=== PATIENT | female | born 1950 | race Caucasian/White ===

== ENCOUNTER 2016-05-02 08:39 | Inpatient (IN) | payer OTHER ==
[~2016-05-02] VITALS: Ht 157.5 cm; Wt 90.2 kg
[~2016-05-02 08:39] MED LIST: CARDIZEM120 MG PO; DAILY VITE1 EAC1 PO; DOMP10T PO; EPIPEN ADU0.3 MG/0.3 IM; EVZIO0.4 MG/0.4 IM; FLEXERIL10 MG PO; FLONASE16 G1 BOTH NARES; GLUCOPHAGE500 MG PO; KEFLEX500 MG PO; LEVO-T112 MCG PO; LIPITOR20 MG PO; LISINOPRIL-HCT1 EAC3 PO; LUNESTA2 MG PO; METHYLPREDNISOLO4 MG PO; OXYCONTIN15 MG PO; PROMETHAZINE HC25 M1 PO; PROTONIX40 MG PO; ROPINIROLE HCL2 MG PO; ROXICODONE15 MG PO; SUCRALFATE1 GM PO; SYMBICORT60 INHALAT IH; TIZANIDINE HCL4 MG PO; [UNRECOGNIZED DRUG - OTHER] TP
[2016-05-02 09:07] LABS: ADD MIUA? NO; BILIRUBIN NEGATIVE; BLOOD NEGATIVE; GLUCOSE (STRIP) 100; KETONES NEGATIVE; LEUKOCYTES NEGATIVE; NITRITE NEGATIVE; PH, URINE 8.5 (5-8); PROTEIN (STRIP) 30; SPECIFIC GRAVITY 1.015 (1.000-1.030); UCUL ADDED? NO; UROBILINOGEN 0.2 MG/DL (0.2-1.0)
[2016-05-02 09:09] LABS: COLOR LT YELLOW ((YELLOW))
[2016-05-02 11:27] LABS: HEMATOCRIT 38.9 % (36.0-46.0); MCH 26.7 PG (29.0-34.0); MCV 76.3 FL (83-99); MEAN PLAT.VOLUME 9.1 uM^3 (9.5-12.4); PLATELET COUNT 295 K/uL (156-360); RBC DIS.WIDTH-CV 13.4 % (11.8-14.6); RBC DIS.WIDTH-SD 35.9 % (39-53); WHITE BLOOD COUNT 17.7 K/uL (4.1-10.2)
[2016-05-02 11:38] LABS: CHLORIDE 102 mEq/L (99-109); POTASSIUM 3.2 mEq/L (3.7-5.4); SODIUM 139 mEq/L (136-147)
[2016-05-02 11:40] LABS: GLUCOSE 171 mg/dL (70-99)
[2016-05-02 11:41] LABS: ANION GAP 12 MEQ/L (2-14)
[2016-05-02 11:42] LABS: TOTAL BILIRUBIN 0.6 mg/dL (0.0-1.0)
[2016-05-02 11:43] LABS: ALKALINE PHOSPHATASE 104 IU/L (3-129)
[2016-05-02 11:44] LABS: GFR ESTIMATE (CALCULATED) > 59 mL/min/
[2016-05-02 11:45] LABS: UREA NITROGEN (BUN) 16 mg/dL (9-23)
[2016-05-02] MEDS ORDERED: FEXOFENADINE H180 MG PO (15:00)
[2016-05-02] MEDS ORDERED: OXYCONTIN30 MG PO (15:09)
[2016-05-02] MEDS ORDERED: ROXICODONE30 MG PO (15:09)
[2016-05-02] MEDS ORDERED: LUNESTA3 MG PO (15:10)
[2016-05-02] MEDS ORDERED: ZOLOFT100 MG PO (15:12)
[2016-05-02 18:31] VITALS: BP 180/80
[2016-05-02 19:19] VITALS: BP 150/76
[2016-05-02 23:27] VITALS: BP 180/84
[2016-05-03] VITALS (7 sets, daily range): BP systolic 135–190; BP diastolic 72–98
[2016-05-03 08:58] LABS: EOSINOPHIL (%) 0.1 % (0-5); HEMATOCRIT 36.5 % (36.0-46.0); IMMATURE GRANULOCYTE (%) 0.4 % (0.0-0.7); IMMATURE GRANULOCYTE COUNT 0.1 K/uL; LYMPHOCYTE COUNT 1.2 K/uL (1.0-2.8); MCH 26.7 PG (29.0-34.0); MCHC 33.4 G/DL (30.0-36.0); MCV 79.9 FL (83-99); MEAN PLAT.VOLUME 9.7 uM^3 (9.5-12.4); MONOCYTE (%) 5.7 % (3-12); MONOCYTE COUNT 1.1 K/uL (0-0.8); NEUTROPHIL (%) 87.4 % (45-76); NEUTROPHIL COUNT 16.2 K/uL (1.8-6.4); PLATELET COUNT 237 K/uL (156-360); RBC DIS.WIDTH-CV 14.2 % (11.8-14.6); RBC DIS.WIDTH-SD 40.6 % (39-53); RED BLOOD COUNT 4.57 M/uL (3.80-5.20); WHITE BLOOD COUNT 18.5 K/uL (4.1-10.2)
[2016-05-03 09:03] LABS: POINT-OF-CARE METER ID UU14149397
[2016-05-03 09:17] LABS: ANION GAP 8 MEQ/L (2-14); CHLORIDE 107 MEQ/L (99-109); GFR ESTIMATE (CALCULATED) > 59 mL/min/; GLUCOSE 123 mg/dL (70-99); POTASSIUM 3.8 MEQ/L (3.7-5.4); SAMPLE HEMOLYSIS CHECK 0; SAMPLE ICTERIC CHECK 0; SAMPLE LIPEMIA CHECK 0; SODIUM 140 MEQ/L (136-147); UREA NITROGEN (BUN) 20 mg/dL (9-23)
[2016-05-03 21:55] LABS: POINT-OF-CARE METER ID UU14149397
[2016-05-04 00:57] VITALS: BP 145/69
[2016-05-04 04:50] VITALS: BP 159/72
[2016-05-04 06:54] LABS: HEMATOCRIT 32.8 % (36.0-46.0); MCH 26.7 PG (29.0-34.0); MCHC 32.6 G/DL (30.0-36.0); MCV 81.8 FL (83-99); RBC DIS.WIDTH-CV 14.3 % (11.8-14.6); RED BLOOD COUNT 4.01 M/uL (3.80-5.20); WHITE BLOOD COUNT 14.6 K/uL (4.1-10.2)
[2016-05-04 07:16] LABS: ANION GAP 9 MEQ/L (2-14); CHLORIDE 102 MEQ/L (99-109); GFR ESTIMATE (CALCULATED) > 59 mL/min/; GLUCOSE 146 mg/dL (70-99); SAMPLE HEMOLYSIS CHECK 0; SAMPLE ICTERIC CHECK 0; SAMPLE LIPEMIA CHECK 0; SODIUM 138 MEQ/L (136-147); UREA NITROGEN (BUN) 18 mg/dL (9-23)
[2016-05-04 07:45] VITALS: BP 165/76
[2016-05-04 09:36] LABS: MAGNESIUM 1.8 mg/dl (1.3-2.7)
[2016-05-04 10:52] LABS: MEAN PLAT.VOLUME 9.3 uM^3 (9.5-12.4)
[2016-05-04 10:53] LABS: PLATELET COUNT 165 K/uL (156-360)
[2016-05-04 11:20] VITALS: BP 138/67
[2016-05-04 11:31] LABS: POINT-OF-CARE METER ID UU14149397
[2016-05-04 15:55] VITALS: BP 136/66
[2016-05-04 19:50] VITALS: BP 129/59
[2016-05-05 02:58] LABS: INTERNAL CONTROL VALID? YES
[2016-05-05 03:30] VITALS: BP 118/58
[2016-05-05 03:37] LABS: C DIFF TOXIN NEGATIVE (NEGATIVE)
[2016-05-05 03:39] LABS: PROBE CHECK PASS; SPECIMEN PROCESSING CONTROL PASS
[2016-05-05 06:57] LABS: HEMATOCRIT 29.2 % (36.0-46.0); MCH 26.5 PG (29.0-34.0); MCHC 32.2 G/DL (30.0-36.0); MCV 82.3 FL (83-99); MEAN PLAT.VOLUME 9.2 uM^3 (9.5-12.4); PLATELET COUNT 178 K/uL (156-360); RBC DIS.WIDTH-SD 42.7 % (39-53); RED BLOOD COUNT 3.55 M/uL (3.80-5.20)
[2016-05-05 06:58] LABS: WHITE BLOOD COUNT 9.5 K/uL (4.1-10.2)
[2016-05-05 07:21] LABS: ANION GAP 7 MEQ/L (2-14); CHLORIDE 101 MEQ/L (99-109); GFR ESTIMATE (CALCULATED) > 59 mL/min/; POTASSIUM 3.3 MEQ/L (3.7-5.4); SAMPLE HEMOLYSIS CHECK 0; SAMPLE ICTERIC CHECK 0; SAMPLE LIPEMIA CHECK 0; SODIUM 136 MEQ/L (136-147); UREA NITROGEN (BUN) 15 mg/dL (9-23)
[2016-05-05 07:22] LABS: GLUCOSE 98 mg/dL (70-99)
[2016-05-05 07:35] VITALS: BP 127/59
[2016-05-05 08:27] LABS: MAGNESIUM 1.9 mg/dl (1.3-2.7)
[2016-05-05 11:41] VITALS: BP 129/62
[2016-05-05 16:14] VITALS: BP 120/56
[2016-05-05 19:50] VITALS: BP 132/59
[2016-05-05 21:15] LABS: POINT-OF-CARE METER ID UU14149397
[2016-05-06] VITALS (7 sets, daily range): BP systolic 107–138; BP diastolic 53–71
[2016-05-06 06:15] LABS: MCH 26.8 PG (29.0-34.0); MCHC 32.7 G/DL (30.0-36.0); MCV 82.2 FL (83-99); MEAN PLAT.VOLUME 9.9 uM^3 (9.5-12.4); PLATELET COUNT 209 K/uL (156-360); RBC DIS.WIDTH-SD 42.4 % (39-53); RED BLOOD COUNT 3.65 M/uL (3.80-5.20)
[2016-05-06 06:39] LABS: ANION GAP 7 MEQ/L (2-14); CHLORIDE 105 MEQ/L (99-109); GFR ESTIMATE (CALCULATED) > 59 mL/min/; GLUCOSE 82 mg/dL (70-99); POTASSIUM 3.9 MEQ/L (3.7-5.4); SAMPLE HEMOLYSIS CHECK 0; SAMPLE ICTERIC CHECK 0; SAMPLE LIPEMIA CHECK 0; SODIUM 140 MEQ/L (136-147); UREA NITROGEN (BUN) 13 mg/dL (9-23)
[2016-05-06 07:00] LABS: POINT-OF-CARE METER ID UU14149397
[2016-05-06 11:41] LABS: POINT-OF-CARE METER ID UU14149397
[2016-05-06 17:08] LABS: POINT-OF-CARE METER ID UU14149397
[2016-05-06 21:55] LABS: POINT-OF-CARE METER ID UU14149397
[2016-05-07 03:42] VITALS: BP 119/57
[2016-05-07 05:40] LABS: HEMATOCRIT 29.7 % (36.0-46.0); MCHC 32.7 G/DL (30.0-36.0); MCV 82.7 FL (83-99); MEAN PLAT.VOLUME 9.4 uM^3 (9.5-12.4); PLATELET COUNT 201 K/uL (156-360); RBC DIS.WIDTH-SD 42.6 % (39-53); RED BLOOD COUNT 3.59 M/uL (3.80-5.20); WHITE BLOOD COUNT 7.9 K/uL (4.1-10.2)
[2016-05-07 06:04] LABS: ANION GAP 6 MEQ/L (2-14); CHLORIDE 103 MEQ/L (99-109); GFR ESTIMATE (CALCULATED) > 59 mL/min/; GLUCOSE 95 mg/dL (70-99); POTASSIUM 4.6 MEQ/L (3.7-5.4); SAMPLE HEMOLYSIS CHECK 0; SAMPLE ICTERIC CHECK 0; SAMPLE LIPEMIA CHECK 0; SODIUM 139 MEQ/L (136-147); UREA NITROGEN (BUN) 12 mg/dL (9-23)
[2016-05-07 07:47] LABS: POINT-OF-CARE METER ID UU14149397
[2016-05-07 08:25] VITALS: BP 126/86
[2016-05-07 12:13] VITALS: BP 145/66
[2016-05-07 12:21] LABS: POINT-OF-CARE METER ID UU14149397
[2016-05-07] MEDS ORDERED: CIPRO500 MG PO (14:45)
[2016-05-07 16:24] VITALS: BP 143/71
[2016-05-14] MEDS ORDERED: VENTOLIN HFA18 GM IH (13:33)
[2016-05-14] MEDS ORDERED: DOMP10T PO (13:33)
[2016-05-14] MEDS ORDERED: GINGER ROOT550 MG PO (13:35)
[2016-05-14] MEDS ORDERED: CRANBERRY PO (13:37)
== END 2016-05-07 17:47 | disposition home or self-care (01) | DRG 872 ==
LOC: EME 08:39 → EDOF 13:16 → 3EAST 13:16 → EDOF 15:45 → 3EAST 17:33
PROVIDERS: Hospitalist; Internal Medicine; Physician Assistant
DX: A41.9 Sepsis, unspecified organism (principal); K57.92 Diverticulitis of intestine, part unspecified, without perforation or abscess without bleeding; F33.9 Major depressive disorder, recurrent, unspecified; J90 Pleural effusion, not elsewhere classified; N28.1 Cyst of kidney, acquired; I10 Essential (primary) hypertension; E11.9 Type 2 diabetes mellitus without complications; F43.10 Post-traumatic stress disorder, unspecified; E78.5 Hyperlipidemia, unspecified; G47.00 Insomnia, unspecified; G89.29 Other chronic pain; E66.9 Obesity, unspecified; Z93.3 Colostomy status; E87.6 Hypokalemia; Z86.718 Personal history of other venous thrombosis and embolism; Z86.711 Personal history of pulmonary embolism; Z87.440 Personal history of urinary (tract) infections; Z68.36 Body mass index [BMI] 36.0-36.9, adult
CPT/HCPCS: 71010; 74176; 80048; 80053; 81003; 82272; 82948; 83735; 85025; 85027; 87040; 87493; 87506; 93306; 94640; 94640 76; 94799; 99281; 99285; C9113; J1170; J1650; J1815; J1940; J1956; J2405; J2543; J3010; J3480; J7030; J7050

== ENCOUNTER 2016-05-10 15:48 | Inpatient (IN) | payer OTHER ==
[~2016-05-10] VITALS: Ht 157.5 cm; Wt 90.9 kg
[~2016-05-10 15:48] MED LIST changes: +CIPRO500 MG PO; +FEXOFENADINE H180 MG PO; +LUNESTA3 MG PO; +OXYCONTIN30 MG PO; +ROXICODONE30 MG PO; +ZOLOFT100 MG PO
[2016-05-10 19:30] LABS: EOSINOPHIL (%) 2.5 % (0-5); EOSINOPHIL COUNT 0.3 K/uL (0-0.3); HEMATOCRIT 32.9 % (36.0-46.0); IMMATURE GRANULOCYTE (%) 0.4 % (0.0-0.7); IMMATURE GRANULOCYTE COUNT 0.5 K/uL; LYMPHOCYTE COUNT 2.7 K/uL (1.0-2.8); MCH 26.5 PG (29.0-34.0); MCHC 33.1 G/DL (30.0-36.0); MCV 79.9 FL (83-99); MEAN PLAT.VOLUME 9.1 uM^3 (9.5-12.4); MONOCYTE (%) 5.8 % (3-12); MONOCYTE COUNT 0.7 K/uL (0-0.8); NEUTROPHIL (%) 68.7 % (45-76); NEUTROPHIL COUNT 8.3 K/uL (1.8-6.4); PLATELET COUNT 299 K/uL (156-360); RBC DIS.WIDTH-CV 13.7 % (11.8-14.6); RBC DIS.WIDTH-SD 38.8 % (39-53); RED BLOOD COUNT 4.12 M/uL (3.80-5.20)
[2016-05-10 19:41] LABS: CHLORIDE 101 mEq/L (99-109); SODIUM 138 mEq/L (136-147)
[2016-05-10 19:43] LABS: GLUCOSE 88 mg/dL (70-99); POTASSIUM 3.4 mEq/L (3.7-5.4)
[2016-05-10 19:43] LABS: ADD MIUA? NO; BILIRUBIN NEGATIVE; BLOOD NEGATIVE; COLOR YELLOW ((YELLOW)); GLUCOSE (STRIP) NEGATIVE; KETONES NEGATIVE; LEUKOCYTES NEGATIVE; NITRITE NEGATIVE; PH, URINE 8.5 (5-8); PROTEIN (STRIP) TRACE; SPECIFIC GRAVITY 1.016 (1.000-1.030); UCUL ADDED? NO; UROBILINOGEN 0.2 MG/DL (0.2-1.0)
[2016-05-10 19:44] LABS: ANION GAP 13 MEQ/L (2-14)
[2016-05-10 19:45] LABS: TOTAL BILIRUBIN 0.3 mg/dL (0.0-1.0)
[2016-05-10 19:47] LABS: ALKALINE PHOSPHATASE 83 IU/L (3-129); GFR ESTIMATE (CALCULATED) > 59 mL/min/
[2016-05-10 19:48] LABS: UREA NITROGEN (BUN) 15 mg/dL (9-23)
[2016-05-10 21:25] LABS: C DIFF TOXIN NEGATIVE (NEGATIVE)
[2016-05-10 21:27] LABS: PROBE CHECK PASS; SPECIMEN PROCESSING CONTROL PASS
[2016-05-11 03:34] VITALS: BP 133/64
[2016-05-11 08:20] VITALS: BP 136/72
[2016-05-11 15:33] VITALS: BP 143/82
[2016-05-11 23:49] VITALS: BP 95/58
[2016-05-12 08:29] LABS: EOSINOPHIL (%) 2.1 % (0-5); EOSINOPHIL COUNT 0.2 K/uL (0-0.3); HEMATOCRIT 31.5 % (36.0-46.0); IMMATURE GRANULOCYTE (%) 0.4 % (0.0-0.7); LYMPHOCYTE COUNT 1.5 K/uL (1.0-2.8); MCH 26.1 PG (29.0-34.0); MCHC 32.1 G/DL (30.0-36.0); MCV 81.4 FL (83-99); MONOCYTE (%) 6.2 % (3-12); MONOCYTE COUNT 0.5 K/uL (0-0.8); NEUTROPHIL (%) 71.5 % (45-76); NEUTROPHIL COUNT 5.4 K/uL (1.8-6.4); PLATELET COUNT 244 K/uL (156-360); RBC DIS.WIDTH-CV 14.3 % (11.8-14.6); RBC DIS.WIDTH-SD 42.3 % (39-53); RED BLOOD COUNT 3.87 M/uL (3.80-5.20); WHITE BLOOD COUNT 7.6 K/uL (4.1-10.2)
[2016-05-12 08:33] VITALS: BP 134/69
[2016-05-12 08:51] LABS: ANION GAP 11 MEQ/L (2-14); CHLORIDE 105 MEQ/L (99-109); GFR ESTIMATE (CALCULATED) 59 mL/min/; GLUCOSE 110 mg/dL (70-99); POTASSIUM 4.3 MEQ/L (3.7-5.4); SAMPLE HEMOLYSIS CHECK 0; SAMPLE ICTERIC CHECK 0; SAMPLE LIPEMIA CHECK 0; SODIUM 139 MEQ/L (136-147); UREA NITROGEN (BUN) 11 mg/dL (9-23)
[2016-05-12 23:00] VITALS: BP 144/76
[2016-05-13 06:27] LABS: HEMATOCRIT 32.6 % (36.0-46.0); MCHC 31.3 G/DL (30.0-36.0); MCV 83.2 FL (83-99); PLATELET COUNT 283 K/uL (156-360); RBC DIS.WIDTH-CV 14.3 % (11.8-14.6); RBC DIS.WIDTH-SD 43.3 % (39-53); RED BLOOD COUNT 3.92 M/uL (3.80-5.20); WHITE BLOOD COUNT 8.8 K/uL (4.1-10.2)
[2016-05-13 06:52] LABS: ANION GAP 9 MEQ/L (2-14); CHLORIDE 104 MEQ/L (99-109); GFR ESTIMATE (CALCULATED) 53 mL/min/; GLUCOSE 112 mg/dL (70-99); POTASSIUM 4.4 MEQ/L (3.7-5.4); SAMPLE HEMOLYSIS CHECK 0; SAMPLE ICTERIC CHECK 0; SAMPLE LIPEMIA CHECK 0; SODIUM 139 MEQ/L (136-147); UREA NITROGEN (BUN) 14 mg/dL (9-23)
[2016-05-13 09:06] VITALS: BP 140/68
[2016-05-13] MEDS ORDERED: FLORASTOR250 MG PO (09:25)
[2016-05-13] MEDS ORDERED: BENTYL20 MG PO (09:25)
[2016-05-13 12:44] VITALS: BP 140/70
[2016-05-14] MEDS ORDERED: DOMP10T PO (13:33)
[2016-05-14] MEDS ORDERED: VENTOLIN HFA18 GM IH (13:33)
[2016-05-14] MEDS ORDERED: GINGER ROOT550 MG PO (13:35)
[2016-05-14] MEDS ORDERED: CRANBERRY PO (13:37)
== END 2016-05-13 17:54 | disposition home or self-care (01) | DRG 392 ==
LOC: EME 15:48 → EDOF 05-11 01:57 → 5EAST 05-11 01:57
PROVIDERS: Emergency Medicine; Hospitalist
DX: K52.9 Noninfective gastroenteritis and colitis, unspecified (principal); R65.10 Systemic inflammatory response syndrome (SIRS) of non-infectious origin without acute organ dysfunction; K57.32 Diverticulitis of large intestine without perforation or abscess without bleeding; N28.1 Cyst of kidney, acquired; K43.5 Parastomal hernia without obstruction or gangrene; K76.0 Fatty (change of) liver, not elsewhere classified; I10 Essential (primary) hypertension; E78.5 Hyperlipidemia, unspecified; E11.9 Type 2 diabetes mellitus without complications; E03.9 Hypothyroidism, unspecified; G89.29 Other chronic pain; E66.9 Obesity, unspecified; F32.9 Major depressive disorder, single episode, unspecified; Z93.3 Colostomy status; Z87.440 Personal history of urinary (tract) infections
CPT/HCPCS: 74176; 80048; 80053; 81003; 85025; 85027; 87177; 87493; 87506; 94640; 94640 76; 99281; 99285; J0696; J0780; J1170; J1650; J2270; J2543; J7030; J7050; S0028

== ENCOUNTER 2016-09-27 09:46 | Emergency (ER) | payer OTHER ==
[~2016-09-27] VITALS: Ht 160 cm; Wt 94.6 kg
[~2016-09-27 09:46] MED LIST changes: +BENTYL20 MG PO; +CRANBERRY PO; +CYMBALTA30 MG PO; +FLORASTOR250 MG PO; +GINGER ROOT550 MG PO; +PROZAC20 MG PO; +VENTOLIN HFA18 GM IH
[2016-09-27 10:09] LABS: POINT-OF-CARE METER ID UU13113702
[2016-09-27 11:59] LABS: HEMATOCRIT 35.3 % (36.0-46.0); MCH 26.4 PG (29.0-34.0); MCHC 32.6 G/DL (30.0-36.0); MEAN PLAT.VOLUME 9.1 uM^3 (9.5-12.4); PLATELET COUNT 232 K/uL (156-360); RBC DIS.WIDTH-CV 13.7 % (11.8-14.6); RBC DIS.WIDTH-SD 39.8 % (39-53); RED BLOOD COUNT 4.36 M/uL (3.80-5.20); WHITE BLOOD COUNT 7.8 K/uL (4.1-10.2)
[2016-09-27 12:08] LABS: CHLORIDE 106 mEq/L (99-109); POTASSIUM 3.9 mEq/L (3.7-5.4); SODIUM 142 mEq/L (136-147)
[2016-09-27 12:10] LABS: GLUCOSE 131 mg/dL (70-99)
[2016-09-27 12:11] LABS: ANION GAP 8 MEQ/L (2-14)
[2016-09-27 12:12] LABS: TOTAL BILIRUBIN 0.2 mg/dL (0.0-1.0)
[2016-09-27 12:13] LABS: ALKALINE PHOSPHATASE 91 IU/L (3-129)
[2016-09-27 12:14] LABS: GFR ESTIMATE (CALCULATED) 59 mL/min/
[2016-09-27 12:15] LABS: UREA NITROGEN (BUN) 14 mg/dL (9-23)
[2016-09-27 12:20] LABS: TROP-I INTERPRETATION NEGATIVE; TROPONIN-I < 0.01 ng/mL (0.0-0.30)
[2016-09-27] MEDS ORDERED: ZOFRAN ODT4 MG PO (13:18)
[2016-09-27 14:19] VITALS: BP 138/83
== END 2016-09-27 14:20 | disposition home or self-care (01) ==
LOC: EME 09:46
PROVIDERS: Emergency Medicine
DX: R53.1 Weakness (principal); R11.0 Nausea; E86.0 Dehydration; R10.84 Generalized abdominal pain; I10 Essential (primary) hypertension; E03.9 Hypothyroidism, unspecified; E11.9 Type 2 diabetes mellitus without complications; Z79.84 Long term (current) use of oral hypoglycemic drugs; Z93.3 Colostomy status; Z90.710 Acquired absence of both cervix and uterus; Z87.891 Personal history of nicotine dependence
CPT/HCPCS: 80053; 82948; 84484; 85027; 93005; 99281; 99285; J2405; J7030

== ENCOUNTER 2016-10-14 21:51 | Observation (INO) | payer OTHER ==
[~2016-10-14] VITALS: Ht 157.5 cm; Wt 85.4 kg
[~2016-10-14 21:51] MED LIST changes: +ZOFRAN ODT4 MG PO
[2016-10-15 00:48] LABS: HEMATOCRIT 36.2 % (36.0-46.0); MCH 26.8 PG (29.0-34.0); MCHC 33.1 G/DL (30.0-36.0); MEAN PLAT.VOLUME 9.3 uM^3 (9.5-12.4); PLATELET COUNT 232 K/uL (156-360); RBC DIS.WIDTH-CV 13.4 % (11.8-14.6); RBC DIS.WIDTH-SD 39.2 % (39-53); RED BLOOD COUNT 4.47 M/uL (3.80-5.20); WHITE BLOOD COUNT 10.9 K/uL (4.1-10.2)
[2016-10-15 00:59] LABS: CHLORIDE 100 mEq/L (99-109); POTASSIUM 3.5 mEq/L (3.7-5.4); SODIUM 134 mEq/L (136-147)
[2016-10-15 01:01] LABS: GLUCOSE 93 mg/dL (70-99)
[2016-10-15 01:02] LABS: ANION GAP 9 MEQ/L (2-14)
[2016-10-15 01:03] LABS: TOTAL BILIRUBIN 0.6 mg/dL (0.0-1.0)
[2016-10-15 01:04] LABS: ALKALINE PHOSPHATASE 93 IU/L (3-129)
[2016-10-15 01:05] LABS: GFR ESTIMATE (CALCULATED) 25 mL/min/
[2016-10-15 01:06] LABS: UREA NITROGEN (BUN) 28 mg/dL (9-23)
[2016-10-15 04:11] LABS: ADD MIUA? YES; BILIRUBIN NEGATIVE; BLOOD NEGATIVE; COLOR YELLOW ((YELLOW)); GLUCOSE (STRIP) NEGATIVE; KETONES NEGATIVE; LEUKOCYTES TRACE; NITRITE NEGATIVE; PROTEIN (STRIP) NEGATIVE; SPECIFIC GRAVITY 1.006 (1.000-1.030); UROBILINOGEN 0.2 MG/DL (0.2-1.0)
[2016-10-15 04:20] LABS: BACTERIA NONE SEEN /HPF; EPITHELIAL CELLS RARE /HPF; GRANULAR CASTS 0-5 /LPF; MUCUS TRACE /LPF; RED BLOOD CELLS 0-5 /HPF (0-5); UCUL ADDED? NO; WHITE BLOOD CELLS 0-5 /HPF (0-5)
[2016-10-15] MEDS ORDERED: CYMBALTA20 MG PO (08:15)
[2016-10-15] MEDS ORDERED: ZOLOFT100 MG PO (08:16)
[2016-10-15] MEDS ORDERED: PROBIOTIC1 EAC2 PO (08:19)
[2016-10-15] MEDS ORDERED: [UNRECOGNIZED DRUG - OTHER] TP (08:23)
[2016-10-15 12:40] LABS: LIPASE 29 U/L (1.0-51.0)
[2016-10-15 16:31] LABS: POINT-OF-CARE METER ID UU14174225
[2016-10-15 16:41] VITALS: BP 129/68
[2016-10-16 00:37] VITALS: BP 132/73
[2016-10-16 03:44] LABS: ADD MIUA? YES; BILIRUBIN NEGATIVE; BLOOD NEGATIVE; COLOR STRAW ((YELLOW)); GLUCOSE (STRIP) NEGATIVE; KETONES NEGATIVE; LEUKOCYTES TRACE; NITRITE NEGATIVE; PROTEIN (STRIP) NEGATIVE; SPECIFIC GRAVITY 1.004 (1.000-1.030); UROBILINOGEN 0.2 MG/DL (0.2-1.0)
[2016-10-16 03:58] LABS: BACTERIA 1+ /HPF; EPITHELIAL CELLS NONE SEEN /HPF; MUCUS NONE SEEN /LPF; UCUL ADDED? NO
[2016-10-16 06:25] LABS: EOSINOPHIL (%) 3.4 % (0-5); EOSINOPHIL COUNT 0.2 K/uL (0-0.3); HEMATOCRIT 32.9 % (36.0-46.0); IMMATURE GRANULOCYTE (%) 0.3 % (0.0-0.7); INSTRUMENT ABS NEUTROPHIL CT 3.8 K/uL; MCH 27.6 PG (29.0-34.0); MCHC 33.1 G/DL (30.0-36.0); MCV 83.3 FL (83-99); MEAN PLAT.VOLUME 9.2 uM^3 (9.5-12.4); MONOCYTE (%) 6.3 % (3-12); MONOCYTE COUNT 0.4 K/uL (0-0.8); NEUTROPHIL COUNT 3.8 K/uL (1.8-6.4); PLATELET COUNT 221 K/uL (156-360); RBC DIS.WIDTH-CV 13.7 % (11.8-14.6); RBC DIS.WIDTH-SD 41.9 % (39-53); RED BLOOD COUNT 3.95 M/uL (3.80-5.20); WHITE BLOOD COUNT 6.5 K/uL (4.1-10.2)
[2016-10-16 06:44] LABS: ANION GAP 7 MEQ/L (2-14); CHLORIDE 106 MEQ/L (99-109); GFR ESTIMATE (CALCULATED) > 59 mL/min/; GLUCOSE 98 mg/dL (70-99); POTASSIUM 3.9 MEQ/L (3.7-5.4); SAMPLE HEMOLYSIS CHECK 0; SAMPLE ICTERIC CHECK 0; SAMPLE LIPEMIA CHECK 0; SODIUM 138 MEQ/L (136-147); UREA NITROGEN (BUN) 13 mg/dL (9-23)
[2016-10-16 07:57] VITALS: BP 111/57
[2016-10-16 16:16] VITALS: BP 114/58
== END 2016-10-16 16:32 | disposition home or self-care (01) ==
LOC: RME 21:51 → EME 21:51 → 5SOUTH 10-15 06:43 → EDOF 10-15 06:43 → 5SOUTH 10-15 16:12
PROVIDERS: Hospitalist; Internal Medicine
DX: N17.9 Acute kidney failure, unspecified (principal); R10.9 Unspecified abdominal pain; R19.7 Diarrhea, unspecified; E86.0 Dehydration; E11.43 Type 2 diabetes mellitus with diabetic autonomic (poly)neuropathy; K31.84 Gastroparesis; G89.4 Chronic pain syndrome; Z93.3 Colostomy status; E03.9 Hypothyroidism, unspecified; E78.5 Hyperlipidemia, unspecified; I10 Essential (primary) hypertension; F32.9 Major depressive disorder, single episode, unspecified; Z87.891 Personal history of nicotine dependence; G47.00 Insomnia, unspecified; Z68.34 Body mass index [BMI] 34.0-34.9, adult; E66.01 Morbid (severe) obesity due to excess calories
CPT/HCPCS: 74176; 80048; 80053; 81003; 82948; 83605; 83690; 85025; 85027; 87177; 87329; 87493; 94640; 94640 76; 99202; 99281; 99285; G0378; J1644; J1815; J2270; J2405; J3010; J7030; J7040

== ENCOUNTER 2016-12-03 18:01 | Inpatient (IN) | payer OTHER ==
[~2016-12-03] VITALS: Ht 157.5 cm; Wt 88.5 kg
[~2016-12-03 18:01] MED LIST changes: +CYMBALTA20 MG PO; +EFFEXOR XR150 MG PO; -EVZIO0.4 MG/0.4 IM; +NALOXONE H0.4 MG/12 NS; +OXYCONTIN20 MG PO; +PROBIOTIC1 EAC2 PO; +ZESTRIL20 MG PO; +[UNRECOGNIZED DRUG - OTHER] TP
[2016-12-03 18:25] LABS: POINT-OF-CARE METER ID UU13113778
[2016-12-03 20:12] LABS: HEMATOCRIT 41.3 % (36.0-46.0); MCH 26.9 PG (29.0-34.0); MCHC 34.6 G/DL (30.0-36.0); MCV 77.8 FL (83-99); PLATELET COUNT 295 K/uL (156-360); RBC DIS.WIDTH-SD 36.7 % (39-53); RED BLOOD COUNT 5.31 M/uL (3.80-5.20); WHITE BLOOD COUNT 13.6 K/uL (4.1-10.2)
[2016-12-03 20:22] LABS: CHLORIDE 99 mEq/L (99-109); POTASSIUM 3.2 mEq/L (3.7-5.4); SODIUM 134 mEq/L (136-147)
[2016-12-03 20:24] LABS: GLUCOSE 207 mg/dL (70-99)
[2016-12-03 20:25] LABS: ANION GAP 11 MEQ/L (2-14)
[2016-12-03 20:26] LABS: TOTAL BILIRUBIN 0.5 mg/dL (0.0-1.0)
[2016-12-03 20:28] LABS: ALKALINE PHOSPHATASE 117 IU/L (3-129); GFR ESTIMATE (CALCULATED) > 59 mL/min/
[2016-12-03 20:29] LABS: UREA NITROGEN (BUN) 12 mg/dL (9-23)
[2016-12-03 20:32] LABS: LIPASE 22 U/L (1.0-51.0)
[2016-12-03 22:31] LABS: CREATINE KINASE 26 IU/L (1-294)
[2016-12-04] VITALS (22 sets, daily range): BP systolic 100–224; BP diastolic 53–160
[2016-12-04 00:29] LABS: BASE EXCESS -2.8 mEq/L (-3 to +3); BICARBONATE 21.9 mEq/L (22-26); CARBOXY HGB 0.9 % (0-5); COMMENTS - BLOOD GASES C+A+; DEVICE NC; METHEMOGLOBIN 0.7 % (0-1.5); O2 FLOW 2 L/MIN; PCO2 37 mm Hg (35-45); PO2 115 mm Hg (80-100); SITE RR; pH 7.38 (7.35-7.45)
[2016-12-04 01:22] LABS: INTER. NORMALIZED RATIO 1.2; PROTHROMBIN TIME 12.7 SEC (10.2-12.9)
[2016-12-04 01:24] LABS: PTT 25.1 SEC (25-37)
[2016-12-04 07:08] LABS: ADD MIUA? YES; BILIRUBIN NEGATIVE; BLOOD SMALL; COLOR YELLOW ((YELLOW)); GLUCOSE (STRIP) NEGATIVE; KETONES NEGATIVE; LEUKOCYTES MODERATE; NITRITE POSITIVE; PROTEIN (STRIP) 100; SPECIFIC GRAVITY 1.014 (1.000-1.030); UROBILINOGEN 0.2 MG/DL (0.2-1.0)
[2016-12-04 07:19] LABS: ANION GAP 22 MEQ/L (2-14); CHLORIDE 104 MEQ/L (99-109); GFR ESTIMATE (CALCULATED) 59 mL/min/; GLUCOSE 159 mg/dL (70-99); POTASSIUM 3.5 MEQ/L (3.7-5.4); SAMPLE HEMOLYSIS CHECK 0; SAMPLE ICTERIC CHECK 0; SAMPLE LIPEMIA CHECK 0; SODIUM 140 MEQ/L (136-147); UREA NITROGEN (BUN) 16 mg/dL (9-23)
[2016-12-04 07:33] LABS: BACTERIA 1+ /HPF; EPITHELIAL CELLS 1+ /HPF; MUCUS TRACE /LPF; UCUL ADDED? YES; WHITE BLOOD CELLS TNTC /HPF (0-5)
[2016-12-04 08:12] LABS: AMPHETAMINES QUANT VALUE 0 NG/ML; BARBITUATES QUANT VALUE 0 NG/ML; BENZODIAZEPINES QUANT VALUE 0 NG/ML; BENZODIAZEPINES, URINE SCREEN Negative (200 ng/mL); MARIJUANA QUANT VALUE 0 NG/ML; PHENCYCLIDINE QUANT VALUE 0 NG/ML
[2016-12-04 11:11] LABS: ANION GAP 16 MEQ/L (2-14); CHLORIDE 107 MEQ/L (99-109); MAGNESIUM 1.4 mg/dl (1.3-2.7); POTASSIUM 3.4 MEQ/L (3.7-5.4); SAMPLE HEMOLYSIS CHECK 0; SAMPLE ICTERIC CHECK 0; SAMPLE LIPEMIA CHECK 0; SODIUM 143 MEQ/L (136-147); TOTAL BILIRUBIN 0.4 MG/DL (0.0-1.0)
[2016-12-04 11:17] LABS: ALKALINE PHOSPHATASE 92 IU/L (3-129); GFR ESTIMATE (CALCULATED) > 59 mL/min/; GLUCOSE 143 mg/dL (70-99); UREA NITROGEN (BUN) 17 mg/dL (9-23)
[2016-12-04 11:27] LABS: METH RESISTANT S AUREUS PCR NEGATIVE (NEGATIVE); PROBE CHECK PASS; SPECIMEN PROCESSING CONTROL PASS
[2016-12-04 11:33] LABS: BASE EXCESS -0.8 mEq/L (-3 to +3); BICARBONATE 23.2 mEq/L (22-26); CARBOXY HGB 0.5 % (0-5); METHEMOGLOBIN 1.2 % (0-1.5); PCO2 35 mm Hg (35-45); PO2 217 mm Hg (80-100); pH 7.43 (7.35-7.45)
[2016-12-04 11:35] LABS: COMMENTS - BLOOD GASES A+C+; DEVICE 980 PB; FI02 100 %; MECHANICAL RATE 10 resp/min; MODE AC; PEEP 5 CM/H20; SITE LR; TIDAL VOLUME 500 ML; TOTAL RESP RATE 15 resp/min
[2016-12-04 18:46] LABS: POINT-OF-CARE METER ID UU13113731
[2016-12-04 21:25] LABS: POINT-OF-CARE METER ID UU13113731
[2016-12-05] VITALS (27 sets, daily range): BP systolic 53–221; BP diastolic 22–123
[2016-12-05 02:06] LABS: POINT-OF-CARE METER ID UU14162636
[2016-12-05 05:47] LABS: ANION GAP 9 MEQ/L (2-14); CHLORIDE 108 MEQ/L (99-109); GFR ESTIMATE (CALCULATED) > 59 mL/min/; GLUCOSE 113 mg/dL (70-99); POTASSIUM 3.5 MEQ/L (3.7-5.4); SAMPLE HEMOLYSIS CHECK 0; SAMPLE ICTERIC CHECK 0; SAMPLE LIPEMIA CHECK 0; SODIUM 140 MEQ/L (136-147); UREA NITROGEN (BUN) 17 mg/dL (9-23)
[2016-12-05 05:57] LABS: EOSINOPHIL (%) 0.1 % (0-5); HEMATOCRIT 31.7 % (36.0-46.0); IMMATURE GRANULOCYTE (%) 0.6 % (0.0-0.7); IMMATURE GRANULOCYTE COUNT 0.1 K/uL; INSTRUMENT ABS NEUTROPHIL CT 10.8 K/uL; LYMPHOCYTE COUNT 1.2 K/uL (1.0-2.8); MCH 27.9 PG (29.0-34.0); MCHC 34.1 G/DL (30.0-36.0); MEAN PLAT.VOLUME 9.6 uM^3 (9.5-12.4); MONOCYTE (%) 5.3 % (3-12); MONOCYTE COUNT 0.7 K/uL (0-0.8); NEUTROPHIL (%) 84.8 % (45-76); NEUTROPHIL COUNT 10.8 K/uL (1.8-6.4); PLAT.SUFFICIENCY ADEQUATE; RBC DIS.WIDTH-CV 14.2 % (11.8-14.6); RBC DIS.WIDTH-SD 41.4 % (39-53); WHITE BLOOD COUNT 12.8 K/uL (4.1-10.2)
[2016-12-05 05:58] LABS: POINT-OF-CARE METER ID UU14162636
[2016-12-05 05:58] LABS: MCV 81.9 FL (83-99); PLATELET COUNT 194 K/uL (156-360); RED BLOOD COUNT 3.87 M/uL (3.80-5.20)
[2016-12-05 10:05] LABS: POINT-OF-CARE METER ID UU13113731
[2016-12-05 13:34] LABS: POINT-OF-CARE METER ID UU13113731
[2016-12-05] MEDS ORDERED: BENADRYL59 ML TP (15:41)
[2016-12-05] MEDS ORDERED: BENADRYL25 MG PO (15:43)
[2016-12-05 18:22] LABS: POINT-OF-CARE METER ID UU13113731
[2016-12-05 21:20] LABS: POINT-OF-CARE METER ID UU13113731
[2016-12-06] VITALS (24 sets, daily range): BP systolic 79–214; BP diastolic 40–112
[2016-12-06 02:03] LABS: POINT-OF-CARE METER ID UU13113748
[2016-12-06 05:40] LABS: POINT-OF-CARE METER ID UU13113748
[2016-12-06 05:59] LABS: EOSINOPHIL (%) 2.5 % (0-5); EOSINOPHIL COUNT 0.2 K/uL (0-0.3); HEMATOCRIT 28.8 % (36.0-46.0); IMMATURE GRANULOCYTE (%) 0.4 % (0.0-0.7); LYMPHOCYTE COUNT 2.1 K/uL (1.0-2.8); MCH 26.5 PG (29.0-34.0); MCHC 31.6 G/DL (30.0-36.0); MCV 83.7 FL (83-99); MEAN PLAT.VOLUME 9.4 uM^3 (9.5-12.4); MONOCYTE (%) 5.9 % (3-12); MONOCYTE COUNT 0.5 K/uL (0-0.8); NEUTROPHIL (%) 67.3 % (45-76); PLATELET COUNT 172 K/uL (156-360); RBC DIS.WIDTH-CV 14.5 % (11.8-14.6); RBC DIS.WIDTH-SD 44.3 % (39-53); RED BLOOD COUNT 3.44 M/uL (3.80-5.20); WHITE BLOOD COUNT 8.9 K/uL (4.1-10.2)
[2016-12-06 06:41] LABS: ANION GAP 5 MEQ/L (2-14); CHLORIDE 109 MEQ/L (99-109); GFR ESTIMATE (CALCULATED) > 59 mL/min/; GLUCOSE 115 mg/dL (70-99); POTASSIUM 3.4 MEQ/L (3.7-5.4); SAMPLE HEMOLYSIS CHECK 0; SAMPLE ICTERIC CHECK 0; SAMPLE LIPEMIA CHECK 0; SODIUM 139 MEQ/L (136-147); UREA NITROGEN (BUN) 14 mg/dL (9-23)
[2016-12-06 12:06] LABS: POINT-OF-CARE METER ID UU13113748
[2016-12-07] VITALS (27 sets, daily range): BP systolic 116–221; BP diastolic 57–108
[2016-12-07 01:33] LABS: CHLORIDE 108 mEq/L (99-109); EOSINOPHIL (%) 1.1 % (0-5); EOSINOPHIL COUNT 0.2 K/uL (0-0.3); HEMATOCRIT 34.9 % (36.0-46.0); IMMATURE GRANULOCYTE (%) 0.9 % (0.0-0.7); IMMATURE GRANULOCYTE COUNT 0.1 K/uL; INSTRUMENT ABS NEUTROPHIL CT 11.7 K/uL; LYMPHOCYTE COUNT 1.2 K/uL (1.0-2.8); MCH 27.1 PG (29.0-34.0); MCHC 33.8 G/DL (30.0-36.0); MCV 80.2 FL (83-99); MEAN PLAT.VOLUME 9.2 uM^3 (9.5-12.4); MONOCYTE (%) 6.5 % (3-12); MONOCYTE COUNT 0.9 K/uL (0-0.8); NEUTROPHIL (%) 83.2 % (45-76); NEUTROPHIL COUNT 11.7 K/uL (1.8-6.4); POTASSIUM 3.6 mEq/L (3.7-5.4); RBC DIS.WIDTH-CV 13.7 % (11.8-14.6); RBC DIS.WIDTH-SD 40.1 % (39-53); SODIUM 141 mEq/L (136-147); WHITE BLOOD COUNT 14.1 K/uL (4.1-10.2)
[2016-12-07 01:35] LABS: GLUCOSE 120 mg/dL (70-99)
[2016-12-07 01:36] LABS: ANION GAP 14 MEQ/L (2-14)
[2016-12-07 01:38] LABS: PLATELET COUNT 234 K/uL (156-360); RED BLOOD COUNT 4.35 M/uL (3.80-5.20)
[2016-12-07 01:39] LABS: GFR ESTIMATE (CALCULATED) > 59 mL/min/
[2016-12-07 01:40] LABS: UREA NITROGEN (BUN) 10 mg/dL (9-23)
[2016-12-07 07:13] LABS: ANION GAP 13 MEQ/L (2-14); CHLORIDE 104 MEQ/L (99-109); GFR ESTIMATE (CALCULATED) > 59 mL/min/; GLUCOSE 119 mg/dL (70-99); POTASSIUM 4.2 MEQ/L (3.7-5.4); SAMPLE HEMOLYSIS CHECK 1; SAMPLE ICTERIC CHECK 0; SAMPLE LIPEMIA CHECK 0; SODIUM 137 MEQ/L (136-147); UREA NITROGEN (BUN) 9 mg/dL (9-23)
[2016-12-07 08:20] LABS: EOSINOPHIL (%) 0.6 % (0-5); EOSINOPHIL COUNT 0.1 K/uL (0-0.3); IMMATURE GRANULOCYTE (%) 1.4 % (0.0-0.7); IMMATURE GRANULOCYTE COUNT 0.2 K/uL; INSTRUMENT ABS NEUTROPHIL CT 12.4 K/uL; LYMPHOCYTE COUNT 1.3 K/uL (1.0-2.8); MCH 28.1 PG (29.0-34.0); MCHC 34.9 G/DL (30.0-36.0); MCV 80.6 FL (83-99); MEAN PLAT.VOLUME 9.3 uM^3 (9.5-12.4); MONOCYTE (%) 4.4 % (3-12); MONOCYTE COUNT 0.6 K/uL (0-0.8); NEUTROPHIL (%) 84.8 % (45-76); NEUTROPHIL COUNT 12.4 K/uL (1.8-6.4); PLATELET COUNT 227 K/uL (156-360); RBC DIS.WIDTH-CV 13.9 % (11.8-14.6); RBC DIS.WIDTH-SD 40.9 % (39-53); RED BLOOD COUNT 4.34 M/uL (3.80-5.20); WHITE BLOOD COUNT 14.6 K/uL (4.1-10.2)
[2016-12-08] VITALS (23 sets, daily range): BP systolic 89–160; BP diastolic 47–82
[2016-12-08 06:25] LABS: EOSINOPHIL (%) 2.8 % (0-5); EOSINOPHIL COUNT 0.4 K/uL (0-0.3); HEMATOCRIT 35.5 % (36.0-46.0); IMMATURE GRANULOCYTE (%) 0.6 % (0.0-0.7); IMMATURE GRANULOCYTE COUNT 0.1 K/uL; INSTRUMENT ABS NEUTROPHIL CT 10.6 K/uL; LYMPHOCYTE COUNT 2.1 K/uL (1.0-2.8); MCH 27.2 PG (29.0-34.0); MCHC 33.8 G/DL (30.0-36.0); MCV 80.5 FL (83-99); MONOCYTE (%) 5.6 % (3-12); MONOCYTE COUNT 0.8 K/uL (0-0.8); NEUTROPHIL (%) 76.1 % (45-76); NEUTROPHIL COUNT 10.6 K/uL (1.8-6.4); PLATELET COUNT 281 K/uL (156-360); RBC DIS.WIDTH-CV 14.3 % (11.8-14.6); RBC DIS.WIDTH-SD 41.1 % (39-53); RED BLOOD COUNT 4.41 M/uL (3.80-5.20)
[2016-12-08 07:00] LABS: ANION GAP 11 MEQ/L (2-14); CHLORIDE 104 MEQ/L (99-109); GFR ESTIMATE (CALCULATED) > 59 mL/min/; GLUCOSE 145 mg/dL (70-99); SAMPLE HEMOLYSIS CHECK 0; SAMPLE ICTERIC CHECK 0; SAMPLE LIPEMIA CHECK 0; SODIUM 139 MEQ/L (136-147); UREA NITROGEN (BUN) 10 mg/dL (9-23)
[2016-12-08 07:08] LABS: POTASSIUM 3.2 MEQ/L (3.7-5.4)
[2016-12-09] VITALS (16 sets, daily range): BP systolic 107–175; BP diastolic 55–87
[2016-12-10 03:23] VITALS: BP 153/69
[2016-12-10 05:56] LABS: ANION GAP 8 MEQ/L (2-14); CHLORIDE 107 MEQ/L (99-109); GFR ESTIMATE (CALCULATED) > 59 mL/min/; GLUCOSE 75 mg/dL (70-99); POTASSIUM 3.4 MEQ/L (3.7-5.4); SAMPLE HEMOLYSIS CHECK 0; SAMPLE ICTERIC CHECK 0; SAMPLE LIPEMIA CHECK 0; SODIUM 141 MEQ/L (136-147); UREA NITROGEN (BUN) 9 mg/dL (9-23)
[2016-12-10 08:24] VITALS: BP 157/78
[2016-12-10 11:50] VITALS: BP 162/73
[2016-12-10 16:04] VITALS: BP 178/73
[2016-12-10 19:54] VITALS: BP 204/91
[2016-12-10 23:39] VITALS: BP 172/81
[2016-12-11 03:22] VITALS: BP 165/75
[2016-12-11 07:18] VITALS: BP 152/77
[2016-12-11 07:41] LABS: ANION GAP 9 MEQ/L (2-14); CHLORIDE 106 MEQ/L (99-109); GFR ESTIMATE (CALCULATED) > 59 mL/min/; POTASSIUM 3.5 MEQ/L (3.7-5.4); SAMPLE HEMOLYSIS CHECK 0; SAMPLE ICTERIC CHECK 0; SAMPLE LIPEMIA CHECK 0; SODIUM 139 MEQ/L (136-147); UREA NITROGEN (BUN) 8 mg/dL (9-23)
[2016-12-11 07:51] LABS: GLUCOSE 106 mg/dL (70-99)
[2016-12-11 08:01] LABS: HEMATOCRIT 34.6 % (36.0-46.0); MCH 27.2 PG (29.0-34.0); MCHC 33.5 G/DL (30.0-36.0); MEAN PLAT.VOLUME 9.4 uM^3 (9.5-12.4); PLATELET COUNT 265 K/uL (156-360); RBC DIS.WIDTH-CV 13.9 % (11.8-14.6); RBC DIS.WIDTH-SD 40.7 % (39-53); RED BLOOD COUNT 4.27 M/uL (3.80-5.20); WHITE BLOOD COUNT 11.5 K/uL (4.1-10.2)
[2016-12-11 11:23] VITALS: BP 181/67
[2016-12-11 15:20] VITALS: BP 132/60
[2016-12-11 20:00] VITALS: BP 188/81
[2016-12-11 22:34] VITALS: BP 218/98
[2016-12-12] VITALS (8 sets, daily range): BP systolic 123–191; BP diastolic 56–96
[2016-12-12 07:05] LABS: EOSINOPHIL (%) 1.1 % (0-5); EOSINOPHIL COUNT 0.1 K/uL (0-0.3); HEMATOCRIT 34.8 % (36.0-46.0); IMMATURE GRANULOCYTE (%) 0.9 % (0.0-0.7); IMMATURE GRANULOCYTE COUNT 0.1 K/uL; LYMPHOCYTE COUNT 1.3 K/uL (1.0-2.8); MCH 27.2 PG (29.0-34.0); MCHC 33.3 G/DL (30.0-36.0); MCV 81.5 FL (83-99); MEAN PLAT.VOLUME 8.9 uM^3 (9.5-12.4); MONOCYTE (%) 6.7 % (3-12); MONOCYTE COUNT 0.8 K/uL (0-0.8); NEUTROPHIL (%) 79.5 % (45-76); PLATELET COUNT 305 K/uL (156-360); RBC DIS.WIDTH-CV 13.7 % (11.8-14.6); RED BLOOD COUNT 4.27 M/uL (3.80-5.20); WHITE BLOOD COUNT 11.3 K/uL (4.1-10.2)
[2016-12-12 07:16] LABS: ANION GAP 11 MEQ/L (2-14); CHLORIDE 106 MEQ/L (99-109); GFR ESTIMATE (CALCULATED) > 59 mL/min/; GLUCOSE 116 mg/dL (70-99); SAMPLE HEMOLYSIS CHECK 0; SAMPLE ICTERIC CHECK 0; SAMPLE LIPEMIA CHECK 0; SODIUM 140 MEQ/L (136-147); UREA NITROGEN (BUN) 13 mg/dL (9-23)
[2016-12-12 07:22] LABS: POTASSIUM 4.3 MEQ/L (3.7-5.4)
[2016-12-12 21:26] LABS: POINT-OF-CARE METER ID UU14174225
[2016-12-13 03:53] VITALS: BP 146/61
[2016-12-13 06:50] LABS: HEMATOCRIT 29.7 % (36.0-46.0); MCH 28.7 PG (29.0-34.0); MCHC 34.3 G/DL (30.0-36.0); MCV 83.7 FL (83-99); MEAN PLAT.VOLUME 8.8 uM^3 (9.5-12.4); PLATELET COUNT 253 K/uL (156-360); RBC DIS.WIDTH-CV 14.1 % (11.8-14.6); RBC DIS.WIDTH-SD 42.5 % (39-53); RED BLOOD COUNT 3.55 M/uL (3.80-5.20); WHITE BLOOD COUNT 9.7 K/uL (4.1-10.2)
[2016-12-13 07:13] LABS: ANION GAP 8 MEQ/L (2-14); CHLORIDE 105 MEQ/L (99-109); GFR ESTIMATE (CALCULATED) > 59 mL/min/; POTASSIUM 4.1 MEQ/L (3.7-5.4); SAMPLE HEMOLYSIS CHECK 0; SAMPLE ICTERIC CHECK 0; SAMPLE LIPEMIA CHECK 0; SODIUM 140 MEQ/L (136-147); UREA NITROGEN (BUN) 19 mg/dL (9-23)
[2016-12-13 07:16] LABS: GLUCOSE 85 mg/dL (70-99)
[2016-12-13 07:37] LABS: POINT-OF-CARE METER ID UU13113717
[2016-12-13 08:11] VITALS: BP 148/69
[2016-12-13] MEDS ORDERED: LEVETIRACETAM500 MG PO (10:33)
[2016-12-13] MEDS ORDERED: LISINOPRIL40 MG PO (10:33)
[2016-12-13] MEDS ORDERED: REGLAN5 MG PO (10:33)
[2016-12-13] MEDS ORDERED: ROXICODONE30 MG PO ×2 (11:44→12:57)
[2016-12-13] MEDS ORDERED: OXYCONTIN20 MG PO ×2 (11:44→12:57)
[2016-12-13 12:39] LABS: POINT-OF-CARE METER ID UU13113717
[2016-12-13 12:48] VITALS: BP 132/74
== END 2016-12-13 16:20 | disposition home health service (06) | DRG 871 ==
LOC: EME 18:01 → EDOF 23:35 → 4WEST 23:35 → ENRESERV 23:38 → CANRESERV 23:38 → ENRESERV 23:55 → EDOF 12-04 02:08 → 2EAST 12-04 02:29 → 4WEST 12-04 08:16 → ENRESERV 12-09 08:57 → 5SOUTH 12-09 11:01
PROVIDERS: Hospitalist; Internal Medicine; Internal Medicine Critical Care Medicine; Nurse Practitioner Adult Health; Physician Assistant Medical; Student in an Organized Health Care Education/Training Program
DX: A41.9 Sepsis, unspecified organism (principal); K52.9 Noninfective gastroenteritis and colitis, unspecified; N10 Acute pyelonephritis; R09.2 Respiratory arrest; R65.21 Severe sepsis with septic shock; E46 Unspecified protein-calorie malnutrition; R56.9 Unspecified convulsions; E87.2 Acidosis; E87.6 Hypokalemia; E83.42 Hypomagnesemia; E03.9 Hypothyroidism, unspecified; G25.81 Restless legs syndrome; G89.29 Other chronic pain; M54.9 Dorsalgia, unspecified; F41.9 Anxiety disorder, unspecified; E78.5 Hyperlipidemia, unspecified; K21.9 Gastro-esophageal reflux disease without esophagitis; F32.9 Major depressive disorder, single episode, unspecified; E11.43 Type 2 diabetes mellitus with diabetic autonomic (poly)neuropathy; K31.84 Gastroparesis; F43.10 Post-traumatic stress disorder, unspecified; F05 Delirium due to known physiological condition; F20.9 Schizophrenia, unspecified; F22 Delusional disorders; I10 Essential (primary) hypertension; I47.1 Supraventricular tachycardia; J45.909 Unspecified asthma, uncomplicated; M79.7 Fibromyalgia; R32 Unspecified urinary incontinence; G43.909 Migraine, unspecified, not intractable, without status migrainosus; G47.00 Insomnia, unspecified; K57.30 Diverticulosis of large intestine without perforation or abscess without bleeding; K94.09 Other complications of colostomy; E66.9 Obesity, unspecified; Z68.34 Body mass index [BMI] 34.0-34.9, adult; Z79.84 Long term (current) use of oral hypoglycemic drugs; Z86.711 Personal history of pulmonary embolism; Z87.891 Personal history of nicotine dependence; I25.2 Old myocardial infarction; Z88.1 Allergy status to other antibiotic agents; Z90.49 Acquired absence of other specified parts of digestive tract; Z86.718 Personal history of other venous thrombosis and embolism
CPT/HCPCS: 36600; 70450; 71010; 74000; 74176; 80048; 80048 91; 80053; 80202; 80306 90; 81003; 82550; 82803; 82948; 83605; 83690; 83735; 83880; 85025; 85025 91; 85027; 85379; 85610; 85730; 87040; 87070; 87086; 87205; 87641; 92526 GN; 92610 GN; 93005; 94002; 94003; 94640; 94640 76; 94760; 94799; 95819; 99202; 99281; 99285; C1751; J0360; J1630; J1650; J1815; J1940; J1953; J1956; J2060; J2250; J2270; J2405; J2543; J2550; J2704; J2765; J2930; J3010; J3360; J3370; J3475; J3480; J7030; J7050; J7120; Q0169

== ENCOUNTER 2017-04-07 03:24 | Inpatient (IN) | payer OTHER ==
[~2017-04-07] VITALS: Ht 157.5 cm; Wt 75.0 kg
[~2017-04-07 03:24] MED LIST changes: +BENADRYL25 MG PO; +BENADRYL59 ML TP; -CRANBERRY PO; +LEVETIRACETAM500 MG PO; +LISINOPRIL40 MG PO; +PRINIVIL20 MG PO; +REGLAN5 MG PO; +THERACRAN650 MG PO; +VENLAFAXINE HCL75 M3 PO
[2017-04-07 04:08] LABS: MCH 26.9 PG (29.0-34.0); MCHC 34.6 G/DL (30.0-36.0); MCV 77.7 FL (83-99); MEAN PLAT.VOLUME 9.2 uM^3 (9.5-12.4); PLATELET COUNT 294 K/uL (156-360); RBC DIS.WIDTH-CV 13.2 % (11.8-14.6); RBC DIS.WIDTH-SD 37.4 % (39-53); RED BLOOD COUNT 4.76 M/uL (3.80-5.20); WHITE BLOOD COUNT 13.8 K/uL (4.1-10.2)
[2017-04-07 04:18] LABS: CHLORIDE 109 mEq/L (99-109)
[2017-04-07 04:19] LABS: POTASSIUM 3.5 mEq/L (3.7-5.4); SODIUM 139 mEq/L (136-147)
[2017-04-07 04:21] LABS: GLUCOSE 240 mg/dL (70-99)
[2017-04-07 04:22] LABS: ANION GAP 12 MEQ/L (2-14)
[2017-04-07 04:23] LABS: TOTAL BILIRUBIN 0.5 mg/dL (0.0-1.0)
[2017-04-07 04:24] LABS: ALKALINE PHOSPHATASE 96 IU/L (3-129); GFR ESTIMATE (CALCULATED) > 59 mL/min/
[2017-04-07 04:26] LABS: UREA NITROGEN (BUN) 20 mg/dL (9-23)
[2017-04-07 04:28] LABS: LIPASE 24 U/L (1.0-51.0)
[2017-04-07] MEDS ORDERED: SPIRIVA1 INHALATI IH (06:36)
[2017-04-07 06:46] LABS: ADD MIUA? NO; BILIRUBIN NEGATIVE; BLOOD NEGATIVE; COLOR STRAW ((YELLOW)); GLUCOSE (STRIP) 50; KETONES NEGATIVE; LEUKOCYTES NEGATIVE; NITRITE NEGATIVE; PROTEIN (STRIP) NEGATIVE; UCUL ADDED? NO; UROBILINOGEN 0.2 MG/DL (0.2-1.0)
[2017-04-07 09:27] VITALS: BP 213/103
[2017-04-07] MEDS ORDERED: BELSOMRA10 MG PO (11:19)
[2017-04-07 12:55] LABS: POINT-OF-CARE METER ID UU14162513
[2017-04-07 13:38] VITALS: BP 190/101
[2017-04-07 14:30] VITALS: BP 174/83
[2017-04-07 16:45] VITALS: BP 182/93
[2017-04-07 18:04] LABS: POINT-OF-CARE METER ID UU13113831
[2017-04-07 19:30] VITALS: BP 167/88
[2017-04-07 23:21] VITALS: BP 118/72
[2017-04-08 03:20] VITALS: BP 103/62
[2017-04-08 07:46] VITALS: BP 112/58
[2017-04-08 08:14] LABS: POINT-OF-CARE METER ID UU14162513
[2017-04-08 12:06] VITALS: BP 108/62
[2017-04-08 13:04] LABS: MCH 27.3 PG (29.0-34.0); MCHC 33.2 G/DL (30.0-36.0); MEAN PLAT.VOLUME 9.2 uM^3 (9.5-12.4); PLATELET COUNT 262 K/uL (156-360); RBC DIS.WIDTH-CV 14.4 % (11.8-14.6); RBC DIS.WIDTH-SD 41.9 % (39-53); RED BLOOD COUNT 4.62 M/uL (3.80-5.20)
[2017-04-08 13:09] LABS: MCV 82.3 FL (83-99)
[2017-04-08 13:28] LABS: ANION GAP 11 MEQ/L (2-14); CHLORIDE 108 MEQ/L (99-109); GFR ESTIMATE (CALCULATED) > 59 mL/min/; POTASSIUM 3.4 MEQ/L (3.7-5.4); SAMPLE HEMOLYSIS CHECK 0; SAMPLE ICTERIC CHECK 0; SAMPLE LIPEMIA CHECK 0; SODIUM 143 MEQ/L (136-147); UREA NITROGEN (BUN) 19 mg/dL (9-23)
[2017-04-08 13:35] LABS: GLUCOSE 85 mg/dL (70-99)
[2017-04-08 17:34] VITALS: BP 127/60
[2017-04-08 18:00] LABS: POINT-OF-CARE METER ID UU14162513
[2017-04-08 20:00] VITALS: BP 116/59
[2017-04-09 00:39] VITALS: BP 104/54
[2017-04-09 09:07] LABS: POINT-OF-CARE METER ID UU13113700
[2017-04-09 12:23] VITALS: BP 118/57
[2017-04-09 13:18] LABS: POINT-OF-CARE METER ID UU13113700
[2017-04-09 17:22] VITALS: BP 122/58
[2017-04-09 18:11] LABS: POINT-OF-CARE METER ID UU13113700
[2017-04-09 20:00] VITALS: BP 119/59
[2017-04-10 00:10] VITALS: BP 135/63
[2017-04-10 04:07] VITALS: BP 141/70
[2017-04-10 07:30] VITALS: BP 131/77
[2017-04-10 07:53] LABS: HEMATOCRIT 34.3 % (36.0-46.0); MCH 27.3 PG (29.0-34.0); MCHC 33.2 G/DL (30.0-36.0); MCV 82.3 FL (83-99); MEAN PLAT.VOLUME 9.3 uM^3 (9.5-12.4); PLATELET COUNT 210 K/uL (156-360); RBC DIS.WIDTH-CV 13.5 % (11.8-14.6); RBC DIS.WIDTH-SD 40.1 % (39-53); RED BLOOD COUNT 4.17 M/uL (3.80-5.20); WHITE BLOOD COUNT 8.2 K/uL (4.1-10.2)
[2017-04-10 08:16] LABS: ANION GAP 8 MEQ/L (2-14); CHLORIDE 108 MEQ/L (99-109); GFR ESTIMATE (CALCULATED) > 59 mL/min/; GLUCOSE 82 mg/dL (70-99); POTASSIUM 3.4 MEQ/L (3.7-5.4); SAMPLE HEMOLYSIS CHECK 0; SAMPLE ICTERIC CHECK 0; SAMPLE LIPEMIA CHECK 0; SODIUM 141 MEQ/L (136-147); UREA NITROGEN (BUN) 11 mg/dL (9-23)
[2017-04-10 09:11] LABS: POINT-OF-CARE METER ID UU13113700
[2017-04-10 12:35] VITALS: BP 134/61
[2017-04-10 13:11] LABS: POINT-OF-CARE METER ID UU13113831
[2017-04-10 17:00] VITALS: BP 119/55
[2017-04-10 18:02] LABS: POINT-OF-CARE METER ID UU13113831
[2017-04-10 19:00] VITALS: BP 158/70
[2017-04-11] VITALS: BP 170/78
[2017-04-11 03:30] VITALS: BP 134/83
[2017-04-11 08:34] LABS: POINT-OF-CARE METER ID UU14162513
[2017-04-11 09:32] VITALS: BP 143/92
[2017-04-11 13:22] VITALS: BP 129/63
[2017-04-11 13:33] LABS: POINT-OF-CARE METER ID UU13113831
[2017-04-11 17:22] LABS: POINT-OF-CARE METER ID UU13113831
[2017-04-11 19:45] VITALS: BP 143/68
[2017-04-11 21:44] LABS: POINT-OF-CARE METER ID UU13113831
[2017-04-12 00:27] VITALS: BP 133/62
[2017-04-12 05:40] VITALS: BP 141/68
[2017-04-12 07:35] LABS: POINT-OF-CARE METER ID UU14162513
[2017-04-12 07:44] VITALS: BP 154/64
[2017-04-12 10:52] LABS: POINT-OF-CARE METER ID UU14162513
[2017-04-12 11:25] VITALS: BP 129/68
[2017-04-12] MEDS ORDERED: LYRICA25 MG PO (12:50)
[2017-04-12] MEDS ORDERED: ALPRAZOLAM0.25 M2 PO (12:50)
== END 2017-04-12 14:51 | disposition home or self-care (01) | DRG 74 ==
LOC: EME → EDBD 03:24 → EME 03:24 → 5WEST 07:47 → EDOF 07:47 → ENRESERV 07:48 → 5WEST 08:40
PROVIDERS: Emergency Medicine; Internal Medicine; Nurse Practitioner Adult Health
DX: E11.43 Type 2 diabetes mellitus with diabetic autonomic (poly)neuropathy (principal); K31.84 Gastroparesis; E86.0 Dehydration; E87.2 Acidosis; E03.9 Hypothyroidism, unspecified; E78.5 Hyperlipidemia, unspecified; I10 Essential (primary) hypertension; F43.12 Post-traumatic stress disorder, chronic; G25.81 Restless legs syndrome; G40.909 Epilepsy, unspecified, not intractable, without status epilepticus; G89.4 Chronic pain syndrome; K43.5 Parastomal hernia without obstruction or gangrene; K76.0 Fatty (change of) liver, not elsewhere classified; M79.7 Fibromyalgia; F32.9 Major depressive disorder, single episode, unspecified; G43.909 Migraine, unspecified, not intractable, without status migrainosus; F41.9 Anxiety disorder, unspecified; J45.909 Unspecified asthma, uncomplicated; K21.9 Gastro-esophageal reflux disease without esophagitis; I25.2 Old myocardial infarction; Z86.718 Personal history of other venous thrombosis and embolism; Z93.3 Colostomy status; Z87.891 Personal history of nicotine dependence; Z90.49 Acquired absence of other specified parts of digestive tract; Z79.84 Long term (current) use of oral hypoglycemic drugs; Z86.711 Personal history of pulmonary embolism; Z88.6 Allergy status to analgesic agent; Z95.828 Presence of other vascular implants and grafts; Z79.891 Long term (current) use of opiate analgesic
CPT/HCPCS: 74177; 80048; 80053; 81003; 82948; 83605; 83690; 85027; 87040; 94640; 94640 76; 94799; 99202; 99281; 99285; G0378; J1200; J1630; J1650; J2270; J2405; J3480; J7030; J7120; S0028

== ENCOUNTER 2017-09-20 12:33 | Emergency (ER) | payer OTHER ==
[~2017-09-20] VITALS: Ht 157.5 cm; Wt 94.0 kg
[~2017-09-20 12:33] MED LIST changes: +ALPRAZOLAM0.25 M2 PO; +BELSOMRA10 MG PO; +LYRICA25 MG PO; +MINIPRESS2 MG PO; +REQUIP3 MG PO; +RISPERDAL2 MG PO; +SPIRIVA1 INHALATI IH; +ZESTRIL10 MG PO
[2017-09-20 13:51] LABS: APPEARANCE SL.HAZY ((CLEAR)); BILIRUBIN NEGATIVE; BLOOD NEGATIVE; COLOR YELLOW ((YELLOW)); GLUCOSE (STRIP) NEGATIVE; KETONES NEGATIVE; LEUKOCYTES LARGE; NITRITE POSITIVE; PROTEIN (STRIP) NEGATIVE; SPECIFIC GRAVITY 1.021 (1.000-1.030); UROBILINOGEN 0.2 MG/DL (0.2-1.0)
[2017-09-20 14:27] LABS: BACTERIA 2+ /HPF; EPITHELIAL CELLS RARE /HPF; MUCUS NONE SEEN /LPF; RED BLOOD CELLS NONE SEEN /HPF (0-5); UCUL ADDED? YES; WHITE BLOOD CELLS 20-30 /HPF (0-5)
[2017-09-20 15:06] LABS: HEMATOCRIT 31.2 % (36.0-46.0); HEMOGLOBIN 10.6 G/DL (11.9-15.5); MCH 27.2 PG (29.0-34.0); MCV 80.2 FL (83-99); PLATELET COUNT 184 K/uL (156-360); RBC DIS.WIDTH-CV 13.2 % (11.8-14.6); RBC DIS.WIDTH-SD 37.9 % (39-53); RED BLOOD COUNT 3.89 M/uL (3.80-5.20)
[2017-09-20 15:14] LABS: ALBUMIN 3.6 g/dL (3.2-4.8)
[2017-09-20 15:15] LABS: CHLORIDE 104 mEq/L (99-109); POTASSIUM 4.2 mEq/L (3.7-5.4); SODIUM 140 mEq/L (136-147)
[2017-09-20 15:17] LABS: GLUCOSE 76 mg/dL (70-99); TOTAL PROTEIN 6.2 g/dL (6.4-8.3)
[2017-09-20 15:19] LABS: TOTAL BILIRUBIN 0.3 mg/dL (0.0-1.0)
[2017-09-20 15:20] LABS: ALKALINE PHOSPHATASE 82 IU/L (3-129)
[2017-09-20 15:21] LABS: CREATININE 0.8 mg/dL (0.6-1.3); GFR ESTIMATE (CALCULATED) > 59 mL/min/
[2017-09-20 15:22] LABS: AST (GOT) 30 IU/L (2-34); UREA NITROGEN (BUN) 17 mg/dL (9-23)
[2017-09-20 15:23] LABS: ALT (GPT) 21 IU/L (3-49)
[2017-09-20] MEDS ORDERED: KEFLEX500 MG PO (19:42)
[2017-09-20 21:18] VITALS: BP 155/61
== END 2017-09-20 21:37 | disposition home or self-care (01) ==
LOC: EME 12:33
DX: N39.0 Urinary tract infection, site not specified (principal); E11.9 Type 2 diabetes mellitus without complications; I10 Essential (primary) hypertension; M79.7 Fibromyalgia; Z87.442 Personal history of urinary calculi; F32.9 Major depressive disorder, single episode, unspecified; Z93.3 Colostomy status; I25.2 Old myocardial infarction; E03.9 Hypothyroidism, unspecified; F43.10 Post-traumatic stress disorder, unspecified; G25.81 Restless legs syndrome; Z88.6 Allergy status to analgesic agent; Z87.891 Personal history of nicotine dependence; Z90.49 Acquired absence of other specified parts of digestive tract
CPT/HCPCS: 74177; 80053; 81003; 83605; 85027; 87077; 87086; 87186; 93005; 99281; 99284; J2270; J7030

== ENCOUNTER 2017-11-18 22:20 | Observation (INO) | payer OTHER ==
[~2017-11-18] VITALS: Ht 157.5 cm; Wt 96.9 kg
[2017-11-18 22:52] LABS: HEMATOCRIT 30.7 % (36.0-46.0); HEMOGLOBIN 10.4 G/DL (11.9-15.5); MCH 26.9 PG (29.0-34.0); MCHC 33.9 G/DL (30.0-36.0); MCV 79.3 FL (83-99); PLATELET COUNT 189 K/uL (156-360); RBC DIS.WIDTH-CV 13.9 % (11.8-14.6); RBC DIS.WIDTH-SD 39.5 % (39-53); RED BLOOD COUNT 3.87 M/uL (3.80-5.20); WHITE BLOOD COUNT 8.6 K/uL (4.1-10.2)
[2017-11-18 23:01] LABS: CHLORIDE 106 mEq/L (99-109); POTASSIUM 3.7 mEq/L (3.7-5.4); SODIUM 141 mEq/L (136-147)
[2017-11-18 23:03] LABS: GLUCOSE 78 mg/dL (70-99)
[2017-11-18 23:07] LABS: CREATININE 0.9 mg/dL (0.6-1.3); GFR ESTIMATE (CALCULATED) > 59 mL/min/
[2017-11-18 23:08] LABS: UREA NITROGEN (BUN) 19 mg/dL (9-23)
[2017-11-18 23:14] LABS: TROP-I INTERPRETATION NEGATIVE; TROPONIN-I < 0.01 ng/mL (0.0-0.30)
[2017-11-19 04:32] VITALS: BP 165/74
[2017-11-19 06:34] LABS: INTER. NORMALIZED RATIO 1.2
[2017-11-19 06:37] LABS: PTT 26.1 SEC (25-37)
[2017-11-19 06:58] LABS: TROP-I INTERPRETATION NEGATIVE; TROPONIN-I < 0.01 ng/mL (0.0-0.30)
[2017-11-19 07:37] VITALS: BP 163/74
[2017-11-19 08:38] VITALS: BP 135/60
[2017-11-19 10:56] LABS: TROP-I INTERPRETATION NEGATIVE; TROPONIN-I < 0.01 ng/mL (0.0-0.30)
[2017-11-19] MEDS ORDERED: HYDROCORTISONE30 G2 TP (11:05)
[2017-11-19] MEDS ORDERED: DAILY VITE1 EAC1 PO (11:06)
[2017-11-19] MEDS ORDERED: CINNAMON500 MG PO (11:06)
[2017-11-19] MEDS ORDERED: CALCIUM 500 MG1 EACH PO (11:06)
[2017-11-19] MEDS ORDERED: BENADRYL25 MG PO (11:07)
[2017-11-19] MEDS ORDERED: [UNRECOGNIZED DRUG - OTHER] (11:07)
== END 2017-11-19 13:55 | disposition home or self-care (01) ==
LOC: EME 22:20 → 4SOUTH 11-19 02:28 → EDOF 11-19 02:28 → ENRESERV 11-19 02:29 → 4SOUTH 11-19 04:25
PROVIDERS: Emergency Medicine; Hospitalist; Nurse Practitioner Family
DX: R07.9 Chest pain, unspecified (principal); R06.02 Shortness of breath; Z86.711 Personal history of pulmonary embolism; Z86.718 Personal history of other venous thrombosis and embolism; F43.10 Post-traumatic stress disorder, unspecified; G89.29 Other chronic pain; Z93.3 Colostomy status; E03.9 Hypothyroidism, unspecified; G47.00 Insomnia, unspecified; I10 Essential (primary) hypertension; E78.5 Hyperlipidemia, unspecified; E11.43 Type 2 diabetes mellitus with diabetic autonomic (poly)neuropathy; K31.84 Gastroparesis; Z87.440 Personal history of urinary (tract) infections; G25.81 Restless legs syndrome; F32.9 Major depressive disorder, single episode, unspecified; Z87.891 Personal history of nicotine dependence; Z88.8 Allergy status to other drugs, medicaments and biological substances; Z91.030 Bee allergy status; Z90.710 Acquired absence of both cervix and uterus
CPT/HCPCS: 71046; 71275; 74177; 80048; 81003; 82948; 84484; 85027; 85610; 85730; 93005; 94640; 94799; 99281; 99285; G0378; J1200; J1650; J2270; J2765; J7512

== ENCOUNTER 2017-12-06 16:54 | Emergency (ER) | payer OTHER ==
[~2017-12-06] VITALS: Ht 157.5 cm; Wt 107.2 kg
[~2017-12-06 16:54] MED LIST changes: +CALCIUM 500 MG1 EACH PO; +CINNAMON500 MG PO; +HYDROCORTISONE30 G2 TP; +[UNRECOGNIZED DRUG - OTHER]
[2017-12-06 19:52] LABS: HEMATOCRIT 30.1 % (36.0-46.0); HEMOGLOBIN 10.1 G/DL (11.9-15.5); MCH 26.8 PG (29.0-34.0); MCHC 33.6 G/DL (30.0-36.0); MCV 79.8 FL (83-99); PLATELET COUNT 173 K/uL (156-360); RBC DIS.WIDTH-CV 13.9 % (11.8-14.6); RBC DIS.WIDTH-SD 39.5 % (39-53); RED BLOOD COUNT 3.77 M/uL (3.80-5.20); WHITE BLOOD COUNT 8.1 K/uL (4.1-10.2)
[2017-12-06 20:01] LABS: ALBUMIN 3.7 g/dL (3.2-4.8); CHLORIDE 105 mEq/L (99-109); POTASSIUM 3.4 mEq/L (3.7-5.4); SODIUM 139 mEq/L (136-147)
[2017-12-06 20:04] LABS: GLUCOSE 84 mg/dL (70-99); TOTAL PROTEIN 6.4 g/dL (6.4-8.3)
[2017-12-06 20:06] LABS: TOTAL BILIRUBIN 0.3 mg/dL (0.0-1.0)
[2017-12-06 20:07] LABS: ALKALINE PHOSPHATASE 80 IU/L (3-129); CREATININE 0.7 mg/dL (0.6-1.3); GFR ESTIMATE (CALCULATED) > 59 mL/min/
[2017-12-06 20:08] LABS: UREA NITROGEN (BUN) 15 mg/dL (9-23)
[2017-12-06 20:09] LABS: AST (GOT) 21 IU/L (2-34)
[2017-12-06 20:10] LABS: ALT (GPT) 17 IU/L (3-49)
[2017-12-06 20:11] LABS: LIPASE 29 U/L (1.0-51.0)
[2017-12-06 20:33] LABS: TROP-I INTERPRETATION NEGATIVE; TROPONIN-I < 0.01 ng/mL (0.0-0.30)
[2017-12-06 21:40] VITALS: BP 143/80
== END 2017-12-06 21:49 | disposition home or self-care (01) ==
LOC: EME 16:54
PROVIDERS: Emergency Medicine
DX: M54.5 Low back pain (principal); R06.02 Shortness of breath; I10 Essential (primary) hypertension; J44.9 Chronic obstructive pulmonary disease, unspecified; E11.43 Type 2 diabetes mellitus with diabetic autonomic (poly)neuropathy; K31.84 Gastroparesis; E03.9 Hypothyroidism, unspecified; M79.7 Fibromyalgia; G25.81 Restless legs syndrome; I25.10 Atherosclerotic heart disease of native coronary artery without angina pectoris; I25.2 Old myocardial infarction; F41.9 Anxiety disorder, unspecified; F32.9 Major depressive disorder, single episode, unspecified; Z87.891 Personal history of nicotine dependence; Z87.442 Personal history of urinary calculi; Z86.711 Personal history of pulmonary embolism; Z93.3 Colostomy status; Z88.8 Allergy status to other drugs, medicaments and biological substances
CPT/HCPCS: 71046; 74176; 80053; 81003; 83690; 84484; 85027; 99281; 99285; J2270